=== PATIENT | female | born 1990 | race Caucasian/White ===

== ENCOUNTER 2018-10-28 18:43 | Emergency (ER) | payer OTHER, SELFPAY ==
[2018-10-28 18:49] VITALS: BP 120/79; PULSE 54; RESP 16; TEMP 37; O2SAT 100
--- NOTE | 2018-10-28 19:04 | ED.GENADUL_ITS ---
Discharge Plan Disposition Patient Disposition: HOME Condition: Improving Discharge Details Chief Complaint: Allergic Clinical Impression: Nausea, Allergic reaction Primary Care Provider: Unknown,Unknown ED Provider: Perla Schmitt Home Meds and New Rx's Prescriptions: New prednisone 20 mg tablet See Rx Instructions .ROUTE .COMPLEX Qty: 12 RF: 0 epinephrine [EpiPen 2-Damaso] 0.3 mg/0.3 mL auto-injector 0.3 mg IM ONCE Qty: 1 RF: 0 Discharge Instructions Instructions: Acute Nausea and Vomiting (ED), General Allergic Reaction (ED) Additional Instructions: Take your nausea medication that you have at home as needed and directed for nausea/vomiting. Take benadryl as needed and directed for itching. Alternate tylenol and motrin as needed and directed for pain. Take the steroids until finished. Use your epi-Pen as needed and directed. Follow up with your primary care doctor this week for re-evaluation. Return to the emergency department if you have persistent vomiting, severe abdominal pain or if you feel significantly worse. Discharge Data Discharge Physician: Perla Schmitt Medical Decision Making <Shad Bassett MD - Last Filed: 10/28/18 19:32> 28 yo female who denies chronic medical problems comes in with chief complaint of nausea. She is visiting from [place] biking at the [employer]. She denies any falls or trauma. She has an allergy to peanuts and had lunch here and thinks there was something in the lunch she had allergies to as she began to have nauesa and felt her throat getting tight. The throat tightening resolved on it's own after 20 minutes but still has had nausea throughout the day. She denies chest pain,sob, rashes. She is in no distress on exam and has no abdominal pain or tenderness on exam. Unclear if this is allergic reaction or possible food illness. Will check electrolytes and hcg and give a dose of steroids ad monitor. She took 2 nausea pills that is over the counter in [place] and on description sounds like zofran, she is decliing additional nausea medicine at this time pt remains stable, still having nausea. Will observe here to see if additional symptoms develop. Pt will be signed out to oncoming provider for reassessment Differential Diagnosis allergic reaction, , food illness Lab Data Lab results reviewed: Yes I reviewed the patient's lab results. <Perla Schmitt DO - Last Filed: 10/29/18 01:44> 1999 --please see Dr. Bassett's note for initial presentation, exam and plan. 28-year-old female with no significant past medical history presents with sensation of throat itching and tightness after possibly eating peanuts today. She has a history of a peanut allergy which causes usually throat swelling itching and difficulty breathing. She denies difficulty breathing at any time. She states she did vomit once earlier with some abdominal pains but states her nausea and abdominal pain is resolved. She denies any other new medicines, antibiotics, other new foods, or any other new exposures. She states she is visiting here from [place] on a bike trip and did not bring her EpiPen. She was given 1 L IV fluids, Solu-Medrol and Phenergan per Dr. Bassett. She had screening labs done which were unremarkable. Case endorsed to follow-up on urine test and patient response to meds and final disposition. Upon my evaluation, patient denies any nausea or abdominal pain. Her abdomen is soft nontender. She is complaining of some mild dizziness and headache. We will give another liter IV fluids, dose of Toradol, Benadryl and reassess. test negative. 2230 --patient feels much better and she is requesting to go home. She was able to ambulate around the emergency department and denies any throat swelling or itching, shortness of breath, headache, dizziness, nausea or abdominal pain. We will send home with prescription for prednisone as well as EpiPen as she left hers at home. She has nausea medication at home. She is advised to follow-up with her primary care doctor for reevaluation and to return here at any time if worse. Medical Records Medical records reviewed: Yes I reviewed the patient's medical records. Lab Data Lab results reviewed: Yes I reviewed the patient's lab results. Laboratory Tests Range/Units 10/28/18 10/28/18 19:15 19:15 WBC (4.4-10.8) k/cumm 7.74 RBC (4.00-5.20) m/cumm 5.16 Hgb (12.0-15.5) g/dL 15.1 Hct (36.0-46.0) % 44.8 MCV (80-95) fL 86.8 MCH (27.0-33.0) pg 29.3 MCHC (32.0-36.0) g/dL 33.7 RDW (11.7-14.6) % 13.2 Plt Count (130-400) x1000/uL 240 MPV (8.0-11.0) fL 10.3 Immature Gran % 0.1 Neutrophils % 73.1 Lymphocytes % 19.3 Monocytes % 6.6 Eosinophils % 0.8 Basophils % 0.1 Absolute Neutrophils (1.2-6.7) k/cumm 5.66 Absolute Lymphocytes (1.2-3.4) k/cumm 1.49 Absolute Monocytes (0.11-0.7) k/cumm 0.51 Absolute Eosinophils (0.0-0.7) k/cumm 0.06 Absolute Basophils (0.0-0.2) k/cumm 0.01 Sodium (136-145) mmol/L 142 Potassium (3.5-5.1) mmol/L 4.0 Chloride (98-107) mmol/L 105 Carbon Dioxide (21.0-32.0) mmol/L 28.1 Anion Gap (3-11) mmol/L 8.9 BUN (7-18) mg/dL 18 Creatinine (0.55-1.02) mg/dL 0.98 Estimated GFR/1.73 m2 (mL/min/1.73m2) >= 60.00 Glucose (70-100) mg/dL 105 H Calcium (8.5-10.1) mg/dL 9.0 Magnesium (1.8-2.4) mg/dL 1.9 Total Bilirubin (0.2-1.0) mg/dL 1.2 H AST (15-37) U/L 19 ALT (12-78) U/L 29 Alkaline Phosphatase (46-116) U/L 112 Total Protein (6.4-8.2) g/dL 7.5 Albumin (3.4-5.0) g/dL 4.0 Lipase (73-393) U/L 169 HPI <Shad Bassett MD - Last Filed: 10/28/18 19:32> General Mode of arrival: ambulatory . Date/Time Provider Initiated Documentation: 10/28/18 18:44 . Limitations to Documentation: no limitations . Information obtained by: patient . History of Present Illness 28 year old F presents to the emergency department with the chief complaint of nausea, Patient started experiencing this hour(s) (6) and it has been constant. No relieving factors improve symptom(s), No exacerbating factors reported . Patient did receive the following treatments prior to arrival, none Related Data Home Medications Medication Instructions Recorded Confirmed epinephrine [EpiPen 2-Damaso] 0.3 mg IM ONCE #1 each 10/28/18 prednisone See Rx Instructions .ROUTE 10/28/18 .COMPLEX #12 tab Previous Rx's Medication Instructions Recorded epinephrine [EpiPen 2-Damaso] 0.3 mg IM ONCE #1 each 10/28/18 prednisone See Rx Instructions .ROUTE 10/28/18 .COMPLEX #12 tab Allergies Allergy/AdvReac Type Severity Reaction Status Date / Time peanuts AdvReac Severe Anaphylaxsi Uncoded 10/28/18 18:57 s General Stated Complaint: Allergic ANNEL: 3 Review of Systems <Shad Bassett MD - Last Filed: 10/28/18 19:32> Review of Systems All systems reviewed & are unremarkable except as noted in HPI and below Constitutional Denies chills, Denies fever(s) and Denies weakness Cardiovascular Denies chest pain and Denies dyspnea Respiratory Denies cough and Denies dyspnea Gastrointestinal Denies abdominal pain, Denies nausea and Denies vomiting Neurologic Denies weakness PFS <Shad Bassett MD - Last Filed: 10/28/18 19:32> Medical History No significant past medical history (Acute) Surgical History No significant past surgical history (Acute) Social History Smoking/Tobacco Use Status: Never Alcohol Intake: never Drug use: Never Do you feel safe at home: Yes Do you feel safe in your relationship?: Yes Exam <Shad Bassett MD - Last Filed: 10/28/18 19:32> Const General: no acute distress Orientation: alert HENMO Head: normal to inspection Ears: external ears normal General nose exam: external nose normal Mouth: moist mucous membranes Eyes General: appearance normal, both eyes and all related structures Neck Neck: normal visual inspection Resp Effort & Inspection: normal respiratory effort and able to speak in complete sentences Cardio Rate: regular rate GI Palpation: soft Skin General skin exam: no rashes or lesions noted Neuro General: alert and oriented x3 Extrem General: normal to inspection Psych Mental Status: mental status grossly normal Course <Shad Bassett MD - Last Filed: 10/28/18 19:32> Vital Signs Temperature 37.0 C 10/28/18 18:49 Pulse 54 L 10/28/18 18:49 Respiratory Rate 16 10/28/18 18:49 Blood Pressure 120/79 10/28/18 18:49 Pulse Oximetry 100 10/28/18 18:49 Temperature 37.0 C 10/28/18 18:49 Temperature Source Temporal Artery Scan 10/28/18 18:49 Pulse 54 L 10/28/18 18:49 Respiratory Rate 16 10/28/18 18:49 Respiratory Effort 10/28/18 18:56 Respiratory Pattern Normal 10/28/18 18:56 Blood Pressure 120/79 10/28/18 18:49 Blood Pressure Position Sitting 10/28/18 18:49 Pulse Oximetry 100 10/28/18 18:49 Oxygen Delivery Method Room Air 10/28/18 18:49 Oxygen Flow Rate 0 10/28/18 18:49 Pain Level 0 10/28/18 18:49 Sign Out <Shad Bassett MD - Last Filed: 10/28/18 19:32> Sign Out Data: Sign Out Comment: reassess her nausea, and poc hcg Last updated by Shad Bassett MD at 10/28/18 19:33
[2018-10-28] MEDS: Normal Saline 1,000 ML 1000 ML IV ×2 (19:21→20:55)
[2018-10-28] MEDS: Normal Saline Flush 10 ML SYR IVP (19:22)
[2018-10-28] MEDS: methylPREDNISolone SUCC 125 MG VIAL IVP (19:22)
[2018-10-28 19:24] LABS: Abs Immature Grans 0.01 k/cumm (0.0-0.09); Absolute Basophil Count 0.01 k/cumm (0.0-0.2); Absolute Eosinophil Count 0.06 k/cumm (0.0-0.7); Absolute Lymphocyte Count 1.49 k/cumm (1.2-3.4); Absolute Monocyte Count 0.51 k/cumm (0.11-0.7); Absolute Neutrophil Count 5.66 k/cumm (1.2-6.7); Basophils % 0.1; Eosinophils % 0.8; HCT 44.8 % (36.0-46.0); HGB 15.1 g/dL (12.0-15.5); Immature Grans % 0.1; Lymphocytes % 19.3; Mean Corp. HGB Concentration 33.7 g/dL (32.0-36.0); Mean Corpuscular Hemoglobin 29.3 pg (27.0-33.0); Mean Corpuscular Volume 86.8 fL (80-95); Mean Platelet Volume 10.3 fL (8.0-11.0); Monocytes % 6.6; Neutrophils % 73.1; Platelet Count 240 x1000/uL (130-400); RBC 5.16 m/cumm (4.00-5.20); RBC Distribution Width 13.2 % (11.7-14.6); White Blood Cell Count 7.74 k/cumm (4.4-10.8)
[2018-10-28 19:38] LABS: ALT 29 U/L (12-78); AST 19 U/L (15-37); Alkaline Phosphatase 112 U/L (46-116); Anion Gap 8.9 mmol/L (3-11); BUN 18 mg/dL (7-18); Bilirubin, Total 1.2 mg/dL (0.2-1.0); CO2 28.1 mmol/L (21.0-32.0); CREATININE 0.98 mg/dL (0.55-1.02); Chloride 105 mmol/L (98-107); Glucose 105 mg/dL (70-100); Lipase 169 U/L (73-393); Magnesium 1.9 mg/dL (1.8-2.4); Sodium 142 mmol/L (136-145); Total Protein 7.5 g/dL (6.4-8.2)
[2018-10-28] MEDS: Ketorolac 30 MG/ML VIAL IVP (20:55)
[2018-10-28] MEDS: diphenhydrAMINE 50 MG/ML VIAL 25 MG IVP (20:55)
== END 2018-10-28 22:44 | disposition home or self-care (01) ==
PROVIDERS: Emergency Medicine; Emergency Provider Physician Assistant
DX: R11.0 Nausea (principal); Z91.010 Allergy to peanuts
CPT/HCPCS: 36415; 80053; 81025; 83690; 96361; 96365; 96375; 99284; 83735; 85025; J1200; J1885; J2930